=== PATIENT | male | born 1995 | race Caucasian/White ===

== ENCOUNTER 2016-09-23 23:58 | Emergency (ER) | payer OTHER ==
[2016-09-24 00:05] VITALS: RESP 18
[2016-09-24] MEDS ORDERED: ONDANSETRON 4 MG/2 ML VIAL IVP ONE (00:11)
[2016-09-24] MEDS ORDERED: NS 1,000 ML IV ONE (00:11)
--- NOTE | 2016-09-24 00:13 | EDPHY ---
HPI/HX/ROS/PE/MDM Narrative: Chief complaint: Nausea, vomiting, alcohol consumption HPI: 21-year-old male presenting complaining of nausea vomiting after consuming about 6 beers and 3 shots of vodka this evening. Patient did have a recent gastrointestinal illness about a week ago. Denies any fevers or chills. No abdominal pain. No chest pain or shortness of breath. Has not fallen down present his head. Denies past medical history. ROS: 10 point Review of Systems is negative except as noted in the HPI. Physical exam: Gen: Awake, Alert, mildly slurred speech, smells of alcohol HEENT: Nose: no rhinorrhea Eyes: PERRLA, EOMI Mouth: Moist mucosa Neck: Supple, no JVD Chest: nontender, lungs clear to auscultation Heart: S1, S2 normal, no murmur Abd: Soft, non-tender, no guarding Back: no CVA tenderness, no midline tenderness Ext: no edema, non-tender Skin: no rash Neuro: CN II-XII intact, Sensation grossly intact, Strength 5/5 in bilateral upper and lower extremities ED Course: Patient is awake and appropriate. No nausea or vomiting. He is tolerating p.o. fluids. He is ambulating without difficulty. He is medically cleared to go home. - Data Points Medications Given: Discontinued Medications Sodium Chloride (Ns) 1,000 mls @ 0 mls/hr IV ONCE ONE PRN Reason: Wide Open Stop: 09/24/16 00:12 Last Admin: 09/24/16 00:24 Dose: 1,000 mls Ondansetron HCl (Zofran) 4 mg IVP EDNOW ONE Stop: 09/24/16 00:12 Last Admin: 09/24/16 00:24 Dose: 4 mg General Time Seen by Provider: 09/24/16 00:01 Initial Vital Signs: Initial Vital Signs Temperature (C) 36.6 C 09/24/16 00:03 Heart Rate 90 09/24/16 00:03 Respiratory Rate 18 09/24/16 00:03 Blood Pressure 119/62 09/24/16 00:03 O2 Sat (%) 99 09/24/16 00:03 O2 Delivery Mode Room Air Allergies/Adverse Reactions: Sulfa (Sulfonamide Antibiotics) Allergy (Verified 09/24/16 00:05) Home Medications: Medication Instructions Recorded Prozac 10 MG (*) 09/24/16 Departure - Departure Disposition: Home, Routine, Self-Care Clinical Impression: Alcoholic intoxication, Vomiting Condition: Good Instructions: Alcohol Intoxication (ED), Acute Nausea and Vomiting (ED) Additional Instructions: Try to avoid binge drinking alcohol. Follow up with primary care physician for any concerns.
[2016-09-24] MEDS ORDERED: ONDANSETRON 4MG PREPACK#2 BTL TAKEHOME ONE (01:57)
[2016-09-24 02:15] VITALS: BP 117/57; PULSE 75; TEMP 98.2; O2SAT 98
== END 2016-09-24 02:40 | disposition home or self-care (01) ==
DX: F10.120 Alcohol abuse with intoxication, uncomplicated (principal); R11.10 Vomiting, unspecified
CPT/HCPCS: 96374; J2405